=== PATIENT | female | born 1960 | race Two or more races ===

== ENCOUNTER 2019-09-19 10:42 | Emergency (ER) | payer MEDICAID, OTHER ==
[~2019-09-19] VITALS: Ht 170.2 cm; Wt 86.2 kg
[2019-09-19 14:29] VITALS: BP 135/86
== END 2019-09-19 14:34 | disposition home or self-care (01) ==
LOC: ER 10:42
DX: J20.9 Acute bronchitis, unspecified (principal); F17.200 Nicotine dependence, unspecified, uncomplicated
CPT/HCPCS: 71046